=== PATIENT | male | born 2000 | race Two or more races ===

== ENCOUNTER 2025-02-08 21:30 | Emergency (ER) | payer BC, OTHER ==
[~2025-02-08] VITALS: Ht 170.2 cm; Wt 63.5 kg
[~2025-02-08 21:30] MED LIST: NO MEDS
[2025-02-09 00:47] VITALS: BP 129/69; TEMP 98.6; O2SAT 100
== END 2025-02-09 00:48 | disposition home or self-care (01) ==
LOC: ER 21:40
DX: R55 Syncope and collapse (principal); F17.200 Nicotine dependence, unspecified, uncomplicated
CPT/HCPCS: 82962-TC